=== PATIENT | male | born 1980 | race American Indian/Alaskan Native ===

== ENCOUNTER 2018-08-24 14:47 | Emergency (ER) | payer MEDICAID ==
[2018-08-24 14:57] VITALS: BP 135/86; PULSE 92; RESP 18; TEMP 98.1; O2SAT 99
[2018-08-24] MEDS ORDERED: Promethazine 6.25 MG/5 ML CUP PO STA (15:42)
[2018-08-24] MEDS ORDERED: Naproxen 500 MG TAB PO STA (15:42)
--- NOTE | 2018-08-24 15:54 | ED PDOC ---
HPI: Influenza Time Seen by Provider: 08/24/18 15:27 Chief Complaint: Flu-like Symptoms Chief Complaint (Provider): Flu-like Symptoms History Per: Patient Exam Limitations: no limitations Have you had recent travel within the past 21 days to any of: No Onset/Duration Of Symptoms: Days (x1 week) Sick Contacts (Context): Family Member(s) (multiple) Additional complaint(s):: Patient is a 38 y/o male who presents to the ED for evaluation of flu-like symptoms for the past x1 week. Patient states that he has a cough productive of phlegm, nasal congestion, sore throat, and intermittent headaches. Patient reports taking Theraflu at home and his last dose was last night. patient does state that he has had multiple sick contacts in his family. Of note, patient is heavy smoker reporting more than a pack per day and also vapes. he denies fever, chills, ear pain, abdominal pain, nausea, vomiting, shortness of breath, chest pain, or recent travel. pmd: none Past Medical History Reviewed: Historical Data, Nursing Documentation, Vital Signs Vital Signs: Last Vital Signs Temp 98.1 F 08/24/18 14:54 Pulse 92 H 08/24/18 14:54 Resp 18 08/24/18 14:54 BP 135/86 08/24/18 14:54 Pulse Ox 99 08/24/18 14:54 - Medical History PMH: HTN - Surgical History Surgical History: No Surg Hx - Family History Family History: States: Unknown Family Hx - Social History Current smoker - smoking cessation education provided: Yes SMOKER/PACKS PER DAY:: 1 (more than 1) Alcohol: Social Drugs: Cannabis - Home Medications Home Medications: Ambulatory Orders Medication Instructions Recorded Ranitidine HCl [Zantac 150] 150 mg PO BID #10 tab 07/24/15 RX: Ibuprofen [Motrin Tab] 600 mg PO Q6 PRN #20 tab 08/24/18 RX: Promethazine DM [Phenergan DM 5 ml PO Q6 PRN #120 ml 08/24/18 Syrup] - Allergies Allergies/Adverse Reactions: Allergies Allergy/AdvReac Type Severity Reaction Status Date / Time No Known Allergies Allergy Verified 07/24/15 12:18 Review of Systems ROS Statement: Except As Marked, All Systems Reviewed And Found Negative Constitutional: Negative for: Fever, Chills ENT: Positive for: Nose Congestion, Throat Pain. Negative for: Ear Pain Cardiovascular: Negative for: Chest Pain Respiratory: Positive for: Cough. Negative for: Shortness of Breath Gastrointestinal: Negative for: Nausea, Vomiting Neurological: Positive for: Headache Physical Exam - Reviewed Nursing Documentation Reviewed: Yes Vital Signs Reviewed: Yes - Physical Exam Comments: GENERAL APPEARANCE: Patient is awake, alert, oriented x 3, in no acute distress. Resting comfortably, no distress. SKIN: Warm, dry; (-) cyanosis. EYES: (-) conjunctival pallor. ENMT: Pharynx: (+) faint erythema (-) swelling, , (-) exudate. TM: (-) bulging, (-) erythema. Nares patent, (-) rhinorrhea. (-) sinus tenderness NECK: Supple, FROM (-) tenderness, (-) stiffness, (-) lymphadenopathy. CHEST AND RESPIRATORY: (-) rhonchi, (-) rales, (-) wheezes; breath sounds equal bilaterally. Respirations even and nonlabored. HEART AND CARDIOVASCULAR: (-) irregularity ABDOMEN AND GI: Soft; (-) tenderness (-) guarding (-) distention. EXTREMITIES: (-) deformity NEURO AND PSYCH: Mental status as above. Cranial nerves grossly intact; strength symmetric. Gait: steady. Speech: clear. (-) facial asymmetry (-) focal deficit Medical Decision Making Medical Decision Making: Time: 15:40 Impression: cough congestion pharyngitis likely viral; tobacco abuse. Initial Plan: CXR Naproxen 500 mg Promethazine Throat culture Influenza A B Rapid strep 1635 Rapid Strep: Negative Influenza: Negative 1700 CXR reviewed, radiology report follows Date of service: 08/24/2018 HISTORY: cough >1 week, extensive tobacco abuse COMPARISON: Comparison made with chest radiograph dated 08/03/2015. TECHNIQUE: Chest PA and lateral FINDINGS: LUNGS: No active pulmonary disease. PLEURA: No significant pleural effusion identified. No pneumothorax apparent. CARDIOVASCULAR: No atherosclerotic calcification present Normal. OSSEOUS STRUCTURES: No significant abnormalities. VISUALIZED UPPER ABDOMEN: Normal. OTHER FINDINGS: None. IMPRESSION: No active disease. On re-evaluation, patient reports improvement of symptoms. On exam, patient remains AAOx3, in no acute distress. Lungs clear to auscultation, cardiac RRR, repeat neuro exam shows no focal findings. Vitals stable. Lab /Diagnostic results d/w the patient in great detail. Diagnosis of cough, throat pain, viral pharyngitis/URI d/w the patient. Based on history, exam and diagnostic results, plan will be for outpatient follow up. Patient instructed to follow-up with pmd / referral provided / the clinic in 1- 2 days without fail. Advised to take medication as prescribed. Return to the emergency room at any time for any new or worsening symptoms. Patient states he fully agrees with and understands discharge instructions. States that he agrees with the plan and disposition. Verbalized and repeated discharge instructions and plan. I have given the patient opportunity to ask any additional questions. Scribe Attestation: Documented by Samuel Fowler, acting as a scribe for Laura Voss PA-C Provider Scribe Attestation: All medical record entries made by the Scribe were at my direction and personally dictated by me. I have reviewed the chart and agree that the record accurately reflects my personal performance of the history, physical exam, medical decision making, and the department course for this patient. I have also personally directed, reviewed, and agree with the discharge instructions and disposition. - ECG O2 Sat by Pulse Oximetry: 99 (RA) Pulse Ox Interpretation: Normal Disposition - Clinical Impression Clinical Impression: Tobacco abuse, Cough, Throat pain in adult, Nasal congestion, Viral URI - Patient ED Disposition Is Patient to be Admitted: No Counseled Patient/Family Regarding: Studies Performed, Diagnosis, Need For Followup, Rx Given, Smoking Cessation - Disposition Referrals: [facility] [Outside] Disposition: Routine/Home Disposition Time: 17:05 Condition: STABLE Additional Instructions: The emergency medical care you received today was directed at your acute sym ptoms. If you were prescribed any medication, please fill it and take as directed. It may take several days for your symptoms to resolve. Return to the Emergency Department if your symptoms worsen, do not improve, or if you have any other problems. Please contact your doctor in 2 days for re-evaluation and follow up / or call one of the physicians/clinics you have been referred to that are listed on the Patient Visit Information form that is included in your discharge packet. Bring any paperwork you were given at discharge with you along with any medications you are taking to your follow up visit. Our treatment cannot replace ongoing medical care by a primary care provider (PCP) outside of the emergency department. Prescriptions: RX: Ibuprofen [Motrin Tab] 600 mg PO Q6 PRN #20 tab PRN Reason: pain/fever RX: Promethazine DM [Phenergan DM Syrup] 5 ml PO Q6 PRN #120 ml PRN Reason: Cough Instructions: Cough in Adults, Sore Throat in Adults, Smoking: Not Just Harmful to Your Lungs and Heart, Viral Upper Respiratory Infection, Adult (DC), Cough, Runny Nose, and the Common Cold Forms: [employer] ([place]) Print Language: FILIPINO - POA Present On Arrival: None Results - Lab Results Lab Results: 08/24/18 08/24/18 16:05 16:05 Influenza Typ A,B (EIA) Negative for flu a/b Grp A Beta Strep Ag Negative
[2018-08-24] MEDS ORDERED: Promethazine 6.25 MG/5 ML CUP ONE (16:04)
[2018-08-24] MEDS ORDERED: Naproxen 500 MG TAB PO ONE (16:04)
--- NOTE | 2018-08-24 16:48 | RAD ---
Date of service: 08/24/2018 HISTORY: cough >1 week, extensive tobacco abuse COMPARISON: Comparison made with chest radiograph dated 08/03/2015. TECHNIQUE: Chest PA and lateral FINDINGS: LUNGS: No active pulmonary disease. PLEURA: No significant pleural effusion identified. No pneumothorax apparent. CARDIOVASCULAR: No atherosclerotic calcification present Normal. OSSEOUS STRUCTURES: No significant abnormalities. VISUALIZED UPPER ABDOMEN: Normal. OTHER FINDINGS: None. IMPRESSION: No active disease.
== END 2018-08-24 17:26 | disposition home or self-care (01) ==
LOC: H.ER 14:47
DX: R05 Cough (principal); J02.9 Acute pharyngitis, unspecified; J06.9 Acute upper respiratory infection, unspecified; R09.81 Nasal congestion; F17.210 Nicotine dependence, cigarettes, uncomplicated; I10 Essential (primary) hypertension

== ENCOUNTER 2019-01-12 12:01 | Emergency (ER) | payer MEDICAID ==
[2019-01-12 12:09] VITALS: BMI 21.5
[2019-01-12 12:10] VITALS: BP 136/74; PULSE 85; RESP 18; O2SAT 99
--- NOTE | 2019-01-12 13:33 | ED PDOC ---
HPI: Influenza Time Seen by Provider: 01/12/19 13:18 Chief Complaint: Flu-like Symptoms Chief Complaint (Provider): URI/Flu like symptoms History Per: Family Exam Limitations: no limitations Onset/Duration Of Symptoms: Days (Pt presents to the ED with two days of symptoms that include loss of voice, and a low grade fever with body "weakness" Pt denies NVD or other symptoms but also indicates that both of his children w ching up with fever this morning and are being treated in this ED current;ly) Sick Contacts (Context): Family Member(s) Past Medical History Reviewed: Historical Data, Nursing Documentation, Vital Signs Vital Signs: Last Vital Signs Temp 99.0 F 01/12/19 12:09 Pulse 85 01/12/19 12:09 Resp 18 01/12/19 12:09 BP 136/74 01/12/19 12:09 Pulse Ox 99 01/12/19 12:09 - Medical History PMH: HTN - Family History Family History: States: Unknown Family Hx - Home Medications Home Medications: Ambulatory Orders Medication Instructions Recorded Ranitidine HCl [Zantac 150] 150 mg PO BID #10 tab 07/24/15 Ibuprofen [Motrin Tab] 600 mg PO Q6 PRN #20 tab 08/24/18 Promethazine DM [Phenergan DM 5 ml PO Q6 PRN #120 ml 08/24/18 Syrup] Oseltamivir Phosphate [Tamiflu] 75 mg PO BID #10 capsule 01/12/19 - Allergies Allergies/Adverse Reactions: Allergies Allergy/AdvReac Type Severity Reaction Status Date / Time No Known Allergies Allergy Verified 07/24/15 12:18 Review of Systems ROS Statement: Except As Marked, All Systems Reviewed And Found Negative Constitutional: Positive for: Fever ENT: Positive for: Nose Discharge, Nose Congestion, Throat Pain. Negative for: Throat Swelling Musculoskeletal: Positive for: Other (body ache generally) Physical Exam - Reviewed Nursing Documentation Reviewed: Yes Vital Signs Reviewed: Yes - Physical Exam Appears: Positive for: Well, Non-toxic, No Acute Distress. Negative for: Uncomfortable Head Exam: Positive for: ATRAUMATIC, NORMAL INSPECTION Skin: Positive for: Normal Color, Warm, Dry. Negative for: Diaphoresis, Pallor, Rash Eye Exam: Positive for: Normal appearance, PERRL. Negative for: Nystagmus, Periorbital swelling, Periorbital tenderness ENT: Positive for: Pharynx Is (erthematous without pharngeal or tonsillare exudate), Nasal Congestion, Pharyngeal Erythema. Negative for: Sinus Pain/Drainage, Tonsillar Exudate, Tonsillar Swelling (the tonsils are at 0/0 without edema) Neck: Positive for: Normal, Painless ROM, Supple Cardiovascular/Chest: Positive for: Regular Rate, Rhythm Respiratory: Positive for: Normal Breath Sounds. Negative for: Wheezing, Respiratory Distress Pulses-Carotid (L): 2+ Pulses-Carotid (R): 2+ Pulses-Radial (L): 2+ Pulses-Radial (R): 2+ Medical Decision Making Medical Decision Making: Time: 1547 -- Patient is flu A+, will treat with tamiflu in the ED and will provide a prescription for further treatment. ____ Scribe Attestation: Documented by Ken Denise, acting as a scribe forJunito Shaikh PA-C. Provider Scribe Attestation: All medical record entries made by the Scribe were at my direction and personally dictated by me. I have reviewed the chart and agree that the record accurately reflects my personal performance of the history, physical exam, medical decision making, and the department course for this patient. I have also personally directed, reviewed, and agree with the discharge instructions and disposition. - ECG O2 Sat by Pulse Oximetry: 99 Disposition - Clinical Impression Clinical Impression: Influenza - Patient ED Disposition Is Patient to be Admitted: No Counseled Patient/Family Regarding: Diagnosis, Need For Followup, Rx Given - Disposition Disposition: Routine/Home () Disposition Time: 15:55 Condition: STABLE Prescriptions: Oseltamivir Phosphate [Tamiflu] 75 mg PO BID #10 capsule Instructions: Flu, Flu, Adult (DC) Forms: [employer] (Nauruan), [facility] ED School/Work Excuse
[2019-01-12 13:35] VITALS: TEMP 99
== END 2019-01-12 16:09 | disposition home or self-care (01) ==
LOC: H.ER 12:01
DX: J11.1 Influenza due to unidentified influenza virus with other respiratory manifestations (principal); I10 Essential (primary) hypertension